=== PATIENT | male | born 1970 | race Caucasian/White ===

== ENCOUNTER 2017-08-13 13:21 | Inpatient (IN) | payer OTHER ==
[2017-08-13 13:21] VITALS: BMI 30.8
--- NOTE | 2017-08-13 15:39 | C.PDOC ---
History Of Present Illness 47yo male with history of hypertension, diabetes, presents to ED with complaints of right sided abdominal pain and flank pain for the past 3 days. He reports associated nausea but denies any vomiting, diarrhea, fever, chills. Patient denies any chest pain, shortness of breath and offers no other medical complaints. Time Seen by Provider: 08/13/17 15:36 Chief Complaint (Nursing): Abdominal Pain History Per: Patient History/Exam Limitations: no limitations Onset/Duration Of Symptoms: Days (3) Current Symptoms Are (Timing): Still Present Location Of Pain/Discomfort: RUQ, RLQ, Other (left flank) Associated Symptoms: Nausea. denies: Fever, Chills, Vomiting, Diarrhea, Chest Pain Past Medical History Reviewed: Historical Data, Nursing Documentation, Vital Signs Vital Signs: Last Vital Signs Temp 98.3 F 08/13/17 20:48 Pulse 61 08/13/17 20:48 Resp 20 08/13/17 20:48 BP 168/88 H 08/13/17 20:48 Pulse Ox 100 08/13/17 21:36 - Medical History PMH: Diabetes, HTN Surgical History: No Surg Hx Family History: States: No Known Family Hx - Social History Hx Tobacco Use: No Hx Alcohol Use: No Hx Substance Use: No - Immunization History Hx Tetanus Toxoid Vaccination: No Hx Influenza Vaccination: No Hx Pneumococcal Vaccination: No Review Of Systems Except As Marked, All Systems Reviewed And Found Negative. Constitutional: Negative for: Fever, Chills Cardiovascular: Negative for: Chest Pain Respiratory: Negative for: Shortness of Breath Gastrointestinal: Positive for: Nausea, Abdominal Pain. Negative for: Vomiting , Diarrhea Physical Exam - Physical Exam Appears: Non-toxic, No Acute Distress Skin: Normal Color Eye(s): bilateral: Normal Inspection Neck: Normal ROM, Supple Chest: Symmetrical Cardiovascular: Rhythm Regular Respiratory: Normal Breath Sounds Gastrointestinal/Abdominal: Soft, Tenderness (mild right flank tenderness) Neurological/Psych: Oriented x3 ED Course And Treatment - Laboratory Results Result Diagrams: 08/13/17 16:02 08/13/17 16:02 O2 Sat by Pulse Oximetry: 100 (RA) Pulse Ox Interpretation: Normal Medical Decision Making Medical Decision Making: Impression: Abdominal Pain- bedside us shows no e/o of gallballder pathology limited view of gallblader neck - labs imaging pending Plan: -- Labs -- Toradol 30mg IVP -- CXR ct shows diverticulitis at hepatic flexure, antibiotics doesd. pt needs multiple rounds of iv analgestis. us ordered to eval gallbladder as small stone seen on ct. dr vivian moe accepts for admission. Disposition - Disposition Disposition: HOSPITALIZED Disposition Time: 09:00 Condition: STABLE - Clinical Impression Clinical Impression: Diverticulitis, Leukocytosis, Gallstone - Scribe Statement The provider has reviewed the documentation as recorded by the Scribe (Shona Lua) Provider Attestation: All medical record entries made by the Scribe were at my direction and personally dictated by me. I have reviewed the chart and agree that the record accurately reflects my personal performance of the history, physical exam, medical decision making, and the department course for this patient. I have also personally directed, reviewed, and agree with the discharge instructions and disposition. Decision To Admit - Pt Status Changed To: Hospital Disposition Of: Inpatient - Admit Certification Admit to Inpatient:: After my assessment, the patient will require hospitalization for at least two midnights. This is because of the severity of symptoms shown, intensity of services needed, and/or the medical risk in this patient being treated as an outpatient. - InPatient: Physician Admission Certification:: needs iv antibiocs and pain control - . Bed Request Type: Regular Admitting Physician: Lennox Moe Patient Diagnosis: Diverticulitis, Leukocytosis, Gallstone
[2017-08-13 16:06] LABS: BASO # 0.1 K/uL (0.0-0.2); BASO % 0.5 % (0.0-2.0); EOS # 0.1 K/uL (0.0-0.7); EOS % 1.1 % (0.0-4.0); HEMOGLOBIN 14.8 g/dL (12.0-18.0); LYMPH # 2.5 K/uL (1.0-4.3); LYMPH % 19.8 % (20.0-40.0); MEAN CORPUSCULAR HEMOGLOBIN 30.6 pg (27.0-31.0); MEAN CORPUSCULAR HGB CONC 33.4 g/dL (33.0-37.0); MEAN PLATELET VOLUME 8.8 fL (7.2-11.7); MONO # 0.8 K/uL (0.0-0.8); MONO % 6.5 % (0.0-10.0); NEUT # 9.1 K/uL (1.8-7.0); NEUT % 72.1 % (50.0-75.0); RBC 4.82 Mil/uL (4.40-5.90); RED CELL DISTRIBUTION WIDTH 13.4 % (11.5-14.5); WHITE BLOOD COUNT 12.7 K/uL (4.8-10.8)
[2017-08-13 16:09] LABS: MEAN CELL VOLUME 91.6 fL (80.0-94.0)
[2017-08-13 16:12] LABS: URINE BILIRUBIN NEGATIVE (NEGATIVE); URINE BLOOD NEGATIVE (NEGATIVE); URINE CLARITY Clear (Clear); URINE COLOR Straw (YELLOW); URINE GLUCOSE (UA) NORMAL (Normal); URINE LEUKOCYTE ESTERASE NEG Leu/uL (Negative); URINE NITRATE NEGATIVE (NEGATIVE); URINE PROTEIN NEGATIVE (NEGATIVE); URINE UROBILINOGEN NORMAL mg/dL (0.2-1.0)
[2017-08-13 16:15] LABS: INR 1.1; PROTHROMBIN TIME 11.9 SECONDS (9.7-12.2)
[2017-08-13 16:27] LABS: ALB/GLOB RATIO 1.4 (1.0-2.1); ALBUMIN 4.1 g/dL (3.5-5.0); ALT/SGPT 31 U/L (21-72); AST/SGOT 25 U/L (17-59); BILIRUBIN,DIRECT 0.3 mg/dL (0.0-0.4); BLOOD UREA NITROGEN 10 mg/dL (9-20); CALCIUM 8.7 mg/dl (8.6-10.4); GFR AFRICAN-AMERICAN > 60; GFR NON-AFRICAN AMERICAN > 60; LIPASE 68 U/L (23-300)
--- NOTE | 2017-08-13 18:37 | CT ---
EXAM: CT Abdomen and Pelvis Without Intravenous Contrast EXAM DATE/TIME: Exam ordered 08/13/2017 3:53 PM CLINICAL HISTORY: 47 years old, male; Pain; Abdominal pain; Flank; Right lower quadrant (rlq); Additional info: Right flank pain TECHNIQUE: Axial computed tomography images of the abdomen and pelvis without intravenous contrast. All CT scans at this facility use one or more dose reduction techniques, viz.: automated exposure control; ma/kV adjustment per patient size (including targeted exams where dose is matched to indication; i.e. head); or iterative reconstruction technique. Coronal and sagittal reformatted images were created and reviewed. COMPARISON: No relevant prior studies available. FINDINGS: Lower thorax: No acute findings. ABDOMEN: Liver: The liver is low in density. A single hepatic parenchymal calcification is noted in the lateral segment left lobe. Gallbladder and bile ducts: Tiny gallstones are suggested in the fundus of the gallbladder.. No calcified stones. No ductal dilation. Pancreas: Unremarkable. No ductal dilation. Spleen: Unremarkable. No splenomegaly. Adrenals: Unremarkable. No mass. Kidneys and ureters: Unremarkable. No obstructing stones. No hydronephrosis. Stomach and bowel: There are scattered colonic diverticula. There is mild stranding of the pericolonic fat at the level of the hepatic flexure. Multiple colonic diverticula are noted. No obstruction. No mucosal thickening. Appendix: No findings to suggest acute appendicitis. PELVIS: Bladder: Unremarkable. No stones. Reproductive: The prostate measures 3.5 x 5 by 3.4 cm. ABDOMEN and PELVIS: Intraperitoneal space: Unremarkable. No free air. No significant fluid collection. Bones/joints: No acute fracture. No dislocation. Soft tissues: Unremarkable. Vasculature: Unremarkable. No abdominal aortic aneurysm. Lymph nodes: Unremarkable. No enlarged lymph nodes. IMPRESSION: Mild diverticulitis suggested the level of hepatic flexure. No abscess. No perforation. 2. Hepatic steatosis. 3. Single hepatic calcification. This could represent previous granulomatous disease. 4. Tiny gallstone suggested in the gallbladder fundus. If intervention is anticipated, this finding should be confirmed with ultrasound Images were attached to this report and are available at [email or web address]
[2017-08-13] MEDS ORDERED: Piperacillin/Tazobact 3.375 GM in Sodium Chloride 100 ML IVPB STA (18:42)
[2017-08-13] MEDS ORDERED: Morphine 4 MG/ML VIAL ONE (19:09)
--- NOTE | 2017-08-13 20:46 | US ---
EXAM: US Abdomen Limited, Right Upper Quadrant EXAM DATE/TIME: Exam ordered 08/13/2017 7:07 PM CLINICAL HISTORY: 47 years old, male; Pain; Abdominal pain; Generalized; Additional info: Ruq pain TECHNIQUE: Real-time ultrasound of the right upper quadrant with image documentation. COMPARISON: CT - ABD PELVIS W/O PO OR IV CONT 2017-08-13 16:28 FINDINGS: Liver: The inferior vena cava is not well seen due to patient body habitus. The liver echotexture is mildly increased and coarsened. The liver measures at least 18.2 cm in craniocaudal span. There is normal blood flow direction in the main portal vein. Normal phasic flow is noted within a hepatic vein. Gallbladder: Unremarkable. No gallstones. Common bile duct: The common bile duct measures are 0.35 cm. No stones. No dilation. Pancreas: The pancreas is not seen due to bowel gas. Right kidney: The right kidney measures 12.3 x 5.3 x 4.9 cm. A 9 mm hypoechoic lesion is noted in the lower pole of the right kidney. Internal echoes are noted. Through-transmission of sound cannot be verified on this examination. IMPRESSION: 1. No gallstones seen. 2. Hepatic steatosis. 3. 9 mm hypoechoic lesion in the lower pole right kidney. This does not meet the ultrasound criteria for simple cyst perhaps due its small size. A followup ultrasound in 12 months might be considered
--- NOTE | 2017-08-13 20:47 | CP.PCM.HP ---
Past Patient History - Past Social History Smoking Status: Never Smoked - CARDIAC Hx Hypertension: Yes - ENDOCRINE/METABOLIC Hx Endocrine Disorders: Yes Hx Diabetes Mellitus Type 2: Yes - PSYCHIATRIC Hx Substance Use: No - SURGICAL HISTORY Hx Surgeries: No Meds Allergies/Adverse Reactions: Allergies Allergy/AdvReac Type Severity Reaction Status Date / Time No Known Allergies Allergy Verified 08/13/17 13:54 Results - Vital Signs Recent Vital Signs: Last Vital Signs Temp 98.8 F 08/13/17 19:15 Pulse 56 L 08/13/17 19:15 Resp 18 08/13/17 19:15 BP 163/81 H 08/13/17 19:15 Pulse Ox 100 08/13/17 19:15 - Labs Result Diagrams: 08/13/17 16:02 08/13/17 16:02 Labs: Laboratory Results - last 24 hr 08/13/17 08/13/17 08/13/17 16:02 16:02 16:02 WBC 12.7 H RBC 4.82 Hgb 14.8 Hct 44.1 MCV 91.6 D MCH 30.6 MCHC 33.4 RDW 13.4 Plt Count 309 MPV 8.8 Neut % (Auto) 72.1 Lymph % (Auto) 19.8 L [place] % (Auto) 6.5 Eos % (Auto) 1.1 Baso % (Auto) 0.5 Neut # (Auto) 9.1 H Lymph # (Auto) 2.5 [place] # (Auto) 0.8 Eos # (Auto) 0.1 Baso # (Auto) 0.1 PT 11.9 INR 1.1 APTT 29 Sodium Potassium Chloride Carbon Dioxide Anion Gap BUN Creatinine Est GFR ( Amer) Est GFR (Non-Af Amer) Random Glucose Calcium Total Bilirubin Direct Bilirubin AST ALT Alkaline Phosphatase Total Protein Albumin Globulin Albumin/Globulin Ratio Lipase Urine Color Straw Urine Clarity Clear Urine pH 7.0 Ur Specific [place] 1.012 Urine Protein Negative Urine Glucose (UA) Normal Urine Ketones Negative Urine Blood Negative Urine Nitrate Negative Urine Bilirubin Negative Urine Urobilinogen Normal Ur Leukocyte Esterase Neg Urine WBC (Auto) < 1 Urine RBC (Auto) < 1 08/13/17 16:02 WBC RBC Hgb Hct MCV MCH MCHC RDW Plt Count MPV Neut % (Auto) Lymph % (Auto) [place] % (Auto) Eos % (Auto) Baso % (Auto) Neut # (Auto) Lymph # (Auto) [place] # (Auto) Eos # (Auto) Baso # (Auto) PT INR APTT Sodium 133 Potassium 4.0 Chloride 97 L Carbon Dioxide 30 Anion Gap 9 L BUN 10 Creatinine 0.8 Est GFR ( Amer) > 60 Est GFR (Non-Af Amer) > 60 Random Glucose 150 H Calcium 8.7 Total Bilirubin 0.4 Direct Bilirubin 0.3 AST 25 ALT 31 Alkaline Phosphatase 78 Total Protein 7.0 Albumin 4.1 Globulin 2.9 Albumin/Globulin Ratio 1.4 Lipase 68 Urine Color Urine Clarity Urine pH Ur Specific [place] Urine Protein Urine Glucose (UA) Urine Ketones Urine Blood Urine Nitrate Urine Bilirubin Urine Urobilinogen Ur Leukocyte Esterase Urine WBC (Auto) Urine RBC (Auto) Assessment & Plan - Assessment and Plan (Free Text) Plan: protonix lvoenox if no bleeding gi consult zosyn flagyl claudia same s/p ct scan and usg surg prn
[2017-08-13] MEDS ORDERED: Piperacillin/Tazobact 3.375 GM in Sodium Chloride 100 ML IVPB SCH (21:00)
[2017-08-13] MEDS: metroNIDAZOLE IV 500 mg/100 ml 500 MG/100 ML BAG IVPB SCH (22:00)
[2017-08-13] MEDS: Morphine 4 MG/ML VIAL IV PRN (22:42)
[2017-08-13] MEDS: (Novolog) Insulin Aspart, Recombinant 100 u/ml 10 ml vial SC SCH (22:45)
[2017-08-14] MEDS: Piperacillin/Tazobact 3.375 GM in Sodium Chloride 100 ML IVPB SCH ×2 (01:22→12:52)
[2017-08-14] MEDS: metroNIDAZOLE IV 500 mg/100 ml 500 MG/100 ML BAG IVPB SCH ×3 (06:35→21:25)
--- NOTE | 2017-08-14 06:49 | CP.PCM.CON ---
<Gustavo Ojeda - Last Filed: 08/14/17 09:17> History of Present Illness - History of Present Illness History of Present Illness: GI Consult Note: 47 M with pmh of HTN and DM presents to the ED with R abdominal and flank pain. Pt states that his pain started 3 days ago and has gotten progressively worse. He states that his pain is located mainly in the R side of his abdomen and R flank, non radiating. The pain is 10/10 in severity. He states that he took some pain medication at home which he doesn't recall the name. The pain is associated with nausea and 1 episode of non bloody non bilious vomiting yesterday. He also states that he had 3 episode of loose BMs yesterday but denied any diarrhea. Denies having this type of pain before. Denies any history of constipation. He denies any fever chills, sob, chest pain, urinary changes. In the ED patient had wbc of 12.7, CT abdomen showed mild diverticulitis at the hepatic flexure, hepatic steatosis, hepatic calcifications suggesting prior granulomatous dx and small gallstone in gallbladder fundus. Abd US showed no gallstone in the hepatic flexure. GI was consulted for diverticulitis. PMH: DM and HTN PSH: Denies ALL: NKA Med: refer to [facility] SH: alcohol use of 24 pack of beer on the weekends, denies any smoking or recreational drugs FH: denies Endo Hx: denies Review of Systems - Review of Systems All systems: reviewed and no additional remarkable complaints except Past Patient History - Past Social History Smoking Status: Never Smoked - CARDIAC Hx Hypertension: Yes - ENDOCRINE/METABOLIC Hx Endocrine Disorders: Yes Hx Diabetes Mellitus Type 2: Yes - MUSCULOSKELETAL/RHEUMATOLOGICAL Hx Falls: No - PSYCHIATRIC Hx Substance Use: No - SURGICAL HISTORY Hx Surgeries: No - ANESTHESIA Hx Anesthesia: Yes Hx Anesthesia Reactions: No Hx Malignant Hyperthermia: No Has any member of the family had a problem w/ anesthesia?: No Meds Allergies/Adverse Reactions: Allergies Allergy/AdvReac Type Severity Reaction Status Date / Time No Known Allergies Allergy Verified 08/13/17 13:54 - Medications Medications: Current Medications Enoxaparin Sodium (Lovenox) 30 mg SC DAILY [facility] Glipizide (Glucotrol) 5 mg PO BIDAC [facility] Metronidazole (Flagyl) 500 mg in 100 mls @ 100 mls/hr IVPB Q8 [facility] Last Admin: 08/14/17 06:35 Dose: 100 mls/hr Piperacillin Sod/Tazobactam (Sod 3.375 gm/ Sodium Chloride) 100 mls @ 200 mls/ hr IVPB Q6H [facility] Last Admin: 08/14/17 01:22 Dose: 200 mls/hr Insulin Aspart (Novolog) 0 unit SC ACHS [facility] PRN Reason: Protocol Last Admin: 08/13/17 22:45 Dose: Not Given Lisinopril (Zestril) 10 mg PO DAILY [facility] Last Admin: 08/13/17 22:36 Dose: 10 mg Metformin HCl (Glucophage) 1,000 mg PO BID [facility] Morphine Sulfate (Morphine) 2 mg IV Q8 PRN PRN Reason: Pain, moderate (4-7) Last Admin: 08/13/17 22:42 Dose: 2 mg Pantoprazole Sodium (Protonix Ec Tab) 40 mg PO DAILY [facility] Pneumococcal Polyvalent Vaccine (Pneumovax 23 Vaccine) 0.5 ml IM .ONCE ONE Stop: 08/15/17 10:01 Physical Exam - Constitutional Appears: No Acute Distress - Head Exam Head Exam: ATRAUMATIC, NORMOCEPHALIC - Eye Exam Eye Exam: EOMI, PERRL Pupil Exam: NORMAL ACCOMODATION - ENT Exam ENT Exam: Mucous Membranes Moist - Respiratory Exam Respiratory Exam: Clear to Auscultation Bilateral. absent: Wheezes - Cardiovascular Exam Cardiovascular Exam: REGULAR RHYTHM, RRR, +S1, +S2 - GI/Abdominal Exam GI & Abdominal Exam: Normal Bowel Sounds, Soft, Tenderness. absent: Distended, Organomegaly Additional comments: mild tenderness in RUQ - Extremities Exam Extremities exam: Negative for: calf tenderness, pedal edema - Neurological Exam Neurological exam: Alert, Oriented x3 - Psychiatric Exam Psychiatric exam: Normal Mood - Skin Skin Exam: Dry, Intact, Warm Results - Vital Signs Recent Vital Signs: Last Vital Signs Temp 98.1 F 08/13/17 23:33 Pulse 64 08/13/17 23:33 Resp 18 08/13/17 23:33 BP 148/69 08/13/17 23:33 Pulse Ox 98 08/13/17 23:33 - Labs Result Diagrams: 08/13/17 16:02 08/13/17 16:02 Labs: Laboratory Results - last 24 hr 08/13/17 08/13/1718 16:02 16:02 16:02 WBC 12.7 H RBC 4.82 Hgb 14.8 Hct 44.1 MCV 91.6 D MCH 30.6 MCHC 33.4 RDW 13.4 Plt Count 309 MPV 8.8 Neut % (Auto) 72.1 Lymph % (Auto) 19.8 L [place] % (Auto) 6.5 Eos % (Auto) 1.1 Baso % (Auto) 0.5 Neut # (Auto) 9.1 H Lymph # (Auto) 2.5 [place] # (Auto) 0.8 Eos # (Auto) 0.1 Baso # (Auto) 0.1 PT 11.9 INR 1.1 APTT 29 Sodium Potassium Chloride Carbon Dioxide Anion Gap BUN Creatinine Est GFR ( Amer) Est GFR (Non-Af Amer) POC Glucose (mg/dL) Random Glucose Calcium Total Bilirubin Direct Bilirubin AST ALT Alkaline Phosphatase Total Protein Albumin Globulin Albumin/Globulin Ratio Lipase Urine Color Straw Urine Clarity Clear Urine pH 7.0 Ur Specific [place] 1.012 Urine Protein Negative Urine Glucose (UA) Normal Urine Ketones Negative Urine Blood Negative Urine Nitrate Negative Urine Bilirubin Negative Urine Urobilinogen Normal Ur Leukocyte Esterase Neg Urine WBC (Auto) < 1 Urine RBC (Auto) < 1 08/13/17 08/13/17 16:02 22:04 WBC RBC Hgb Hct MCV MCH MCHC RDW Plt Count MPV Neut % (Auto) Lymph % (Auto) [place] % (Auto) Eos % (Auto) Baso % (Auto) Neut # (Auto) Lymph # (Auto) [place] # (Auto) Eos # (Auto) Baso # (Auto) PT INR APTT Sodium 133 Potassium 4.0 Chloride 97 L Carbon Dioxide 30 Anion Gap 9 L BUN 10 Creatinine 0.8 Est GFR ( Amer) > 60 Est GFR (Non-Af Amer) > 60 POC Glucose (mg/dL) 174 H Random Glucose 150 H Calcium 8.7 Total Bilirubin 0.4 Direct Bilirubin 0.3 AST 25 ALT 31 Alkaline Phosphatase 78 Total Protein 7.0 Albumin 4.1 Globulin 2.9 Albumin/Globulin Ratio 1.4 Lipase 68 Urine Color Urine Clarity Urine pH Ur Specific [place] Urine Protein Urine Glucose (UA) Urine Ketones Urine Blood Urine Nitrate Urine Bilirubin Urine Urobilinogen Ur Leukocyte Esterase Urine WBC (Auto) Urine RBC (Auto) Assessment & Plan - Assessment and Plan (Free Text) Assessment: 47 M with pmh of HTN and DM presents to the ED with R abdominal and flank pain likely 2/2 possible mild diverticulitis and/or constipation. 1. Possible mild diverticulitis 2. Constipation 2. DM 3. HTN - HHD as tolerated - Continue Antibiotics with Zosyn and Flagyl - Pain control - Antiemetics PRN - Started on Miralax for constipation - Pt would benefit from outpatient elective colonoscopy - Cont to monitor patient clinical course Case and plan was reviewed and discussed in detail with Dr Mathews. <Hilario Mathews - Last Filed: 08/14/17 20:27> Meds - Medications Medications: Current Medications Enoxaparin Sodium (Lovenox) 30 mg SC DAILY [facility] Last Admin: 08/14/17 11:49 Dose: 30 mg Glipizide (Glucotrol) 5 mg PO BIDAC [facility] Last Admin: 08/14/17 17:10 Dose: 5 mg Metronidazole (Flagyl) 500 mg in 100 mls @ 100 mls/hr IVPB Q8 [facility] Last Admin: 08/14/17 13:34 Dose: 100 mls/hr Piperacillin Sod/Tazobactam Sod (Zosyn 3.375 Gm Iv Premix) 3.375 gm in 50 mls @ 200 mls/hr IVPB Q6H [facility] Last Admin: 08/14/17 18:37 Dose: 200 mls/hr Insulin Aspart (Novolog) 0 unit SC ACHS [facility] PRN Reason: Protocol Last Admin: 08/14/17 17:07 Dose: Not Given Ketorolac Tromethamine (Toradol) 30 mg IVP Q6 PRN PRN Reason: Pain, Mild (1-3) Lisinopril (Zestril) 10 mg PO DAILY [facility] Last Admin: 08/14/17 12:44 Dose: Not Given Metformin HCl (Glucophage) 1,000 mg PO BID [facility] Last Admin: 08/14/17 17:10 Dose: 1,000 mg Morphine Sulfate (Morphine) 2 mg IV Q8 PRN PRN Reason: Pain, moderate (4-7) Last Admin: 08/14/17 17:06 Dose: 2 mg Pantoprazole Sodium (Protonix Ec Tab) 40 mg PO DAILY [facility] Last Admin: 08/14/17 11:51 Dose: 40 mg Pneumococcal Polyvalent Vaccine (Pneumovax 23 Vaccine) 0.5 ml IM .ONCE ONE Stop: 08/15/17 10:01 Polyethylene Glycol (Miralax) 17 gm PO DAILY [facility] Last Admin: 08/14/17 11:49 Dose: 17 gm Results - Vital Signs Recent Vital Signs: Last Vital Signs Temp 98.2 F 08/14/17 16:00 Pulse 60 08/14/17 16:00 Resp 20 08/14/17 16:00 BP 131/73 08/14/17 16:00 Pulse Ox 100 08/14/17 16:00 - Labs Result Diagrams: 08/14/17 11:01 08/14/17 11:01 Labs: Laboratory Results - last 24 hr 08/13/17 08/14/17 08/14/17 22:04 07:10 11:01 WBC 11.6 H RBC 4.62 Hgb 14.6 Hct 41.9 MCV 90.7 MCH 31.6 H MCHC 34.8 RDW 13.1 Plt Count 293 MPV 9.3 Neut % (Auto) 77.1 H Lymph % (Auto) 15.1 L [place] % (Auto) 6.3 Eos % (Auto) 1.2 Baso % (Auto) 0.3 Neut # (Auto) 9.0 H Lymph # (Auto) 1.8 [place] # (Auto) 0.7 Eos # (Auto) 0.1 Baso # (Auto) 0.0 Sodium Potassium Chloride Carbon Dioxide Anion Gap BUN Creatinine Est GFR ( Amer) Est GFR (Non-Af Amer) POC Glucose (mg/dL) 174 H 158 H Random Glucose Calcium Total Bilirubin AST ALT Alkaline Phosphatase Total Protein Albumin Globulin Albumin/Globulin Ratio 08/14/17 08/14/17 08/14/17 11:01 11:25 16:02 WBC RBC Hgb Hct MCV MCH MCHC RDW Plt Count MPV Neut % (Auto) Lymph % (Auto) [place] % (Auto) Eos % (Auto) Baso % (Auto) Neut # (Auto) Lymph # (Auto) [place] # (Auto) Eos # (Auto) Baso # (Auto) Sodium 136 Potassium 4.0 Chloride 98 Carbon Dioxide 31 H Anion Gap 11 BUN 10 Creatinine 0.9 Est GFR ( Amer) > 60 Est GFR (Non-Af Amer) > 60 POC Glucose (mg/dL) 146 H 108 Random Glucose 166 H Calcium 8.9 Total Bilirubin 0.6 AST 23 ALT 30 Alkaline Phosphatase 69 Total Protein 6.4 Albumin 3.6 Globulin 2.8 Albumin/Globulin Ratio 1.3 Attending/Attestation - Attestation I have personally seen and examined this patient.: Yes I have fully participated in the care of the patient.: Yes I have reviewed all pertinent clinical information: Yes Notes (Text): 08/14/17 20:26 47 year old male with h/o HTN, DM admitted with mild diverticulitis. 1. Acute diverticulitis 2. Constipation Plan: - mild stranding at hepatic flexure per CT report - recommend course of antibiotics - outpatient colonoscopy in 6 weeks - miralax bowel regimen - advance diet as tolerated - supportive measures/pain control
[2017-08-14 08:02] VITALS: RESP 20
[2017-08-14] MEDS: Morphine 4 MG/ML VIAL IV PRN (08:20)
[2017-08-14] MEDS: (Novolog) Insulin Aspart, Recombinant 100 u/ml 10 ml vial SC SCH ×4 (08:29→21:33)
--- NOTE | 2017-08-14 08:37 | RAD ---
HISTORY: abd pain COMPARISON: No prior. TECHNIQUE: Chest PA and lateral FINDINGS: LUNGS: No active pulmonary disease. PLEURA: No significant pleural effusion identified. No pneumothorax apparent. CARDIOVASCULAR: Normal. OSSEOUS STRUCTURES: No significant abnormalities. VISUALIZED UPPER ABDOMEN: Normal. OTHER FINDINGS: None. IMPRESSION: No active disease.
[2017-08-14] MEDS ORDERED: POLYETHYLENE GLYCOL 3350 17 GM/Dose PACKET PO SCH (10:00)
[2017-08-14 11:22] LABS: BASO % 0.3 % (0.0-2.0); EOS # 0.1 K/uL (0.0-0.7); EOS % 1.2 % (0.0-4.0); HEMOGLOBIN 14.6 g/dL (12.0-18.0); LYMPH # 1.8 K/uL (1.0-4.3); LYMPH % 15.1 % (20.0-40.0); MEAN CELL VOLUME 90.7 fL (80.0-94.0); MEAN CORPUSCULAR HEMOGLOBIN 31.6 pg (27.0-31.0); MEAN CORPUSCULAR HGB CONC 34.8 g/dL (33.0-37.0); MEAN PLATELET VOLUME 9.3 fL (7.2-11.7); MONO # 0.7 K/uL (0.0-0.8); MONO % 6.3 % (0.0-10.0); NEUT % 77.1 % (50.0-75.0); NRBC % 0.1 % (0.0-2.0); RBC 4.62 Mil/uL (4.40-5.90); RED CELL DISTRIBUTION WIDTH 13.1 % (11.5-14.5); WHITE BLOOD COUNT 11.6 K/uL (4.8-10.8)
[2017-08-14 11:31] LABS: ALB/GLOB RATIO 1.3 (1.0-2.1); ALBUMIN 3.6 g/dL (3.5-5.0); ALT/SGPT 30 U/L (21-72); AST/SGOT 23 U/L (17-59); BLOOD UREA NITROGEN 10 mg/dL (9-20); CALCIUM 8.9 mg/dl (8.6-10.4); GFR AFRICAN-AMERICAN > 60; GFR NON-AFRICAN AMERICAN > 60
[2017-08-14] MEDS: Enoxaparin 30 mg Syringe SC SCH (11:49)
[2017-08-14] MEDS: Pantoprazole 40 mg EC Tab PO SCH (11:51)
--- NOTE | 2017-08-14 15:30 | CP.PCM.PN ---
Subjective - Date & Time of Evaluation Date of Evaluation: 08/14/17 Time of Evaluation: 15:18 - Subjective Subjective: PGY [address] Pena Pt seen and examined at bedside. Continues to c/o right sided abd pain. Denies having any N/V, CP/SOB, F/C. Patient is tolerating soft food. States that last BM was 2 days ago. Objective - Vital Signs/Intake and Output Vital Signs (last 24 hours): Temp Pulse Resp BP Pulse Ox 97.7 F 65 20 159/89 H 99 08/14/17 07:01 08/14/17 07:01 08/14/17 07:01 08/14/17 07:01 08/14/17 07:01 Intake and Output: 08/14/17 08/14/17 06:59 18:59 Intake Total 200 Balance 200 - Medications Medications: Current Medications Enoxaparin Sodium (Lovenox) 30 mg SC DAILY [facility] Last Admin: 08/14/17 11:49 Dose: 30 mg Glipizide (Glucotrol) 5 mg PO BIDAC [facility] Last Admin: 08/14/17 08:33 Dose: 5 mg Metronidazole (Flagyl) 500 mg in 100 mls @ 100 mls/hr IVPB Q8 [facility] Last Admin: 08/14/17 13:34 Dose: 100 mls/hr Piperacillin Sod/Tazobactam Sod (Zosyn 3.375 Gm Iv Premix) 3.375 gm in 50 mls @ 200 mls/hr IVPB Q6H [facility] Insulin Aspart (Novolog) 0 unit SC ACHS [facility] PRN Reason: Protocol Last Admin: 08/14/17 11:52 Dose: Not Given Lisinopril (Zestril) 10 mg PO DAILY [facility] Last Admin: 08/14/17 12:44 Dose: Not Given Metformin HCl (Glucophage) 1,000 mg PO BID [facility] Last Admin: 08/14/17 11:48 Dose: 1,000 mg Morphine Sulfate (Morphine) 2 mg IV Q8 PRN PRN Reason: Pain, moderate (4-7) Last Admin: 08/14/17 08:20 Dose: 2 mg Pantoprazole Sodium (Protonix Ec Tab) 40 mg PO DAILY [facility] Last Admin: 08/14/17 11:51 Dose: 40 mg Pneumococcal Polyvalent Vaccine (Pneumovax 23 Vaccine) 0.5 ml IM .ONCE ONE Stop: 08/15/17 10:01 Polyethylene Glycol (Miralax) 17 gm PO DAILY [facility] Last Admin: 08/14/17 11:49 Dose: 17 gm - Labs Labs: 08/14/17 11:01 08/14/17 11:01 PT 11.9 SECONDS (9.7-12.2) 08/13/17 16:02 INR 1.1 08/13/17 16:02 APTT 29 SECONDS (21-34) 08/13/17 16:02 - Constitutional Appears: Non-toxic, No Acute Distress - Head Exam Head Exam: ATRAUMATIC - ENT Exam ENT Exam: Mucous Membranes Moist - Respiratory Exam Respiratory Exam: Clear to Ausculation Bilateral. absent: Accessory Muscle Use , Rhonchi, Wheezes, Respiratory Distress - Cardiovascular Exam Cardiovascular Exam: REGULAR RHYTHM, +S1, +S2. absent: Gallop, Rubs, Murmur - GI/Abdominal Exam GI & Abdominal Exam: Soft, Tenderness (r quadrant ), Normal Bowel Sounds. absent: Distended, Firm, Guarding, Rigid, Organomegaly - Extremities Exam Extremities Exam: absent: Pedal Edema, Tenderness - Neurological Exam Neurological Exam: Alert, Awake, Oriented x3 - Psychiatric Exam Psychiatric exam: Normal Affect, Normal Mood - Skin Skin Exam: Dry, Intact, Normal Color, Warm Assessment and Plan - Assessment and Plan (Free Text) Assessment: 47 year old male with past medical history of HTN, DM is admitted for mild diverticulitis at the hepatic flexure seen on CT scan Diverticulitis Pt was afebrile on presentation but had elevated WBC count Pt started on flagyl and zosyn GI consulted. recommend continuing Abx and advancing diet as tolerated. rec o/ p colonoscopy HTN Continue to monitor VS Continue zestril DM Continue metformin and glipizide Accuchecks ACHS Prophylaxis Lovenox protonix Case discussed with Dr. Pena. All recs and orders per Dr. Pena.
[2017-08-14] MEDS ORDERED: Morphine 4 MG/ML VIAL IV PRN ×2 (16:21→16:22)
--- NOTE | 2017-08-14 18:17 | CP.PCM.PN ---
Subjective - Date & Time of Evaluation Date of Evaluation: 08/14/17 Time of Evaluation: 08:40 - Subjective Subjective: clinically same Objective - Vital Signs/Intake and Output Vital Signs (last 24 hours): Temp Pulse Resp BP Pulse Ox 98.2 F 60 20 131/73 100 08/14/17 16:00 08/14/17 16:00 08/14/17 16:00 08/14/17 16:00 08/14/17 16:00 Intake and Output: 08/14/17 08/14/17 06:59 18:59 Intake Total 200 Balance 200 - Medications Medications: Current Medications Enoxaparin Sodium (Lovenox) 30 mg SC DAILY [facility] Last Admin: 08/14/17 11:49 Dose: 30 mg Glipizide (Glucotrol) 5 mg PO BIDAC [facility] Last Admin: 08/14/17 17:10 Dose: 5 mg Metronidazole (Flagyl) 500 mg in 100 mls @ 100 mls/hr IVPB Q8 [facility] Last Admin: 08/14/17 13:34 Dose: 100 mls/hr Piperacillin Sod/Tazobactam Sod (Zosyn 3.375 Gm Iv Premix) 3.375 gm in 50 mls @ 200 mls/hr IVPB Q6H [facility] Insulin Aspart (Novolog) 0 unit SC ACHS [facility] PRN Reason: Protocol Last Admin: 08/14/17 17:07 Dose: Not Given Ketorolac Tromethamine (Toradol) 30 mg IVP Q6 PRN PRN Reason: Pain, Mild (1-3) Lisinopril (Zestril) 10 mg PO DAILY [facility] Last Admin: 08/14/17 12:44 Dose: Not Given Metformin HCl (Glucophage) 1,000 mg PO BID [facility] Last Admin: 08/14/17 17:10 Dose: 1,000 mg Morphine Sulfate (Morphine) 2 mg IV Q8 PRN PRN Reason: Pain, moderate (4-7) Last Admin: 08/14/17 17:06 Dose: 2 mg Pantoprazole Sodium (Protonix Ec Tab) 40 mg PO DAILY [facility] Last Admin: 08/14/17 11:51 Dose: 40 mg Pneumococcal Polyvalent Vaccine (Pneumovax 23 Vaccine) 0.5 ml IM .ONCE ONE Stop: 08/15/17 10:01 Polyethylene Glycol (Miralax) 17 gm PO DAILY [facility] Last Admin: 08/14/17 11:49 Dose: 17 gm - Labs Labs: 08/14/17 11:01 08/14/17 11:01 PT 11.9 SECONDS (9.7-12.2) 08/13/17 16:02 INR 1.1 08/13/17 16:02 APTT 29 SECONDS (21-34) 08/13/17 16:02 - Constitutional Appears: Well - Head Exam Head Exam: ATRAUMATIC, NORMAL INSPECTION, NORMOCEPHALIC - Eye Exam Eye Exam: EOMI, Normal appearance, PERRL Pupil Exam: NORMAL ACCOMODATION, PERRL - ENT Exam ENT Exam: Mucous Membranes Moist, Normal Exam - Neck Exam Neck Exam: Full ROM, Normal Inspection. absent: Lymphadenopathy - Respiratory Exam Respiratory Exam: Decreased Breath Sounds - Cardiovascular Exam Cardiovascular Exam: REGULAR RHYTHM, +S1, +S2 - GI/Abdominal Exam GI & Abdominal Exam: Soft, Diminished Bowel Sounds - Rectal Exam Rectal Exam: Deferred
[2017-08-14] MEDS: Piperacill/Tazo 3.375gm in Dex 3.375 GM/50 ML BAG IVPB SCH (18:37)
[2017-08-15] MEDS: Piperacill/Tazo 3.375gm in Dex 3.375 GM/50 ML BAG IVPB SCH ×3 (00:14→12:56)
[2017-08-15] MEDS: metroNIDAZOLE IV 500 mg/100 ml 500 MG/100 ML BAG IVPB SCH ×2 (05:52→13:58)
--- NOTE | 2017-08-15 06:49 | CP.PCM.PN ---
<Gustavo Ojeda - Last Filed: 08/15/17 08:50> Subjective - Date & Time of Evaluation Date of Evaluation: 08/15/17 Time of Evaluation: 05:50 - Subjective Subjective: GI Progress note: Pt seen and examined at bedside. No acute events overnight. Pt still complaining of R sided flank and abdominal pain but has improved mildly from yesterday. He denies any nausea, vomiting, diarrhea or constipation. Tolerating diet. 12 Point ROS performed and negative other than stated above. Objective - Vital Signs/Intake and Output Vital Signs (last 24 hours): Temp Pulse Resp BP Pulse Ox 97.5 F L 60 20 151/77 H 98 08/14/17 23:26 08/14/17 23:26 08/14/17 23:26 08/14/17 23:26 08/14/17 23:26 Intake and Output: 08/14/17 08/15/17 18:59 06:59 Intake Total 550 Balance 550 - Medications Medications: Current Medications Enoxaparin Sodium (Lovenox) 30 mg SC DAILY [facility] Last Admin: 08/14/17 11:49 Dose: 30 mg Glipizide (Glucotrol) 5 mg PO BIDAC [facility] Last Admin: 08/14/17 17:10 Dose: 5 mg Metronidazole (Flagyl) 500 mg in 100 mls @ 100 mls/hr IVPB Q8 [facility] Last Admin: 08/15/17 05:52 Dose: 100 mls/hr Piperacillin Sod/Tazobactam Sod (Zosyn 3.375 Gm Iv Premix) 3.375 gm in 50 mls @ 200 mls/hr IVPB Q6H [facility] Last Admin: 08/15/17 06:06 Dose: 200 mls/hr Insulin Aspart (Novolog) 0 unit SC ACHS [facility] PRN Reason: Protocol Last Admin: 08/14/17 21:33 Dose: Not Given Ketorolac Tromethamine (Toradol) 30 mg IVP Q6 PRN PRN Reason: Pain, Mild (1-3) Lisinopril (Zestril) 10 mg PO DAILY [facility] Last Admin: 08/14/17 12:44 Dose: Not Given Metformin HCl (Glucophage) 1,000 mg PO BID [facility] Last Admin: 08/14/17 17:10 Dose: 1,000 mg Morphine Sulfate (Morphine) 2 mg IV Q8 PRN PRN Reason: Pain, moderate (4-7) Last Admin: 08/14/17 17:06 Dose: 2 mg Pantoprazole Sodium (Protonix Ec Tab) 40 mg PO DAILY [facility] Last Admin: 08/14/17 11:51 Dose: 40 mg Pneumococcal Polyvalent Vaccine (Pneumovax 23 Vaccine) 0.5 ml IM .ONCE ONE Stop: 08/15/17 10:01 Polyethylene Glycol (Miralax) 17 gm PO DAILY [facility] Last Admin: 08/14/17 11:49 Dose: 17 gm - Labs Labs: 08/14/17 11:01 08/14/17 11:01 PT 11.9 SECONDS (9.7-12.2) 08/13/17 16:02 INR 1.1 08/13/17 16:02 APTT 29 SECONDS (21-34) 08/13/17 16:02 - Constitutional Appears: No Acute Distress - Head Exam Head Exam: ATRAUMATIC, NORMOCEPHALIC - Eye Exam Eye Exam: EOMI Pupil Exam: NORMAL ACCOMODATION - ENT Exam ENT Exam: Mucous Membranes Moist - Respiratory Exam Respiratory Exam: Clear to Ausculation Bilateral. absent: Rales, Wheezes - Cardiovascular Exam Cardiovascular Exam: RRR, +S1, +S2 - GI/Abdominal Exam GI & Abdominal Exam: Soft, Tenderness, Normal Bowel Sounds. absent: Distended, Organomegaly Additional comments: Mild tenderness to RUQ and flank area - Extremities Exam Extremities Exam: absent: Calf Tenderness, Tenderness - Neurological Exam Neurological Exam: Alert, Awake, Oriented x3 - Psychiatric Exam Psychiatric exam: Normal Mood - Skin Skin Exam: Dry, Intact, Warm Assessment and Plan - Assessment and Plan (Free Text) Assessment: 47 M with pmh of HTN and DM presents to the ED with R abdominal and flank pain likely 2/2 mild diverticulitis and/or constipation. 1. Acute mild diverticulitis 2. Constipation 3. DM - HHD as tolerated - Continue Antibiotics with Zosyn and Flagyl - Increased Miralax to BID for constipation - Pain control - Antiemetics PRN - Pt would benefit from outpatient colonoscopy in 6 weeks - Cont to monitor patient clinical course Case and plan was reviewed and discussed in detail with Dr Nice <Isai Nice - Last Filed: 08/15/17 14:22> Objective - Vital Signs/Intake and Output Vital Signs (last 24 hours): Temp Pulse Resp BP Pulse Ox 98.6 F 68 20 138/85 98 08/15/17 08:00 08/15/17 08:00 08/15/17 08:00 08/15/17 08:00 08/15/17 08:00 Intake and Output: 08/15/17 08/15/17 06:59 18:59 Intake Total 550 Balance 550 - Medications Medications: Current Medications Docusate Sodium (Colace) 100 mg PO BID [facility] Last Admin: 08/15/17 10:40 Dose: 100 mg Enoxaparin Sodium (Lovenox) 30 mg SC DAILY [facility] Last Admin: 08/15/17 10:36 Dose: 30 mg [facility] Last Admin: 08/15/17 08:27 Dose: 5 mg Metronidazole (Flagyl) 500 mg in 100 mls @ 100 mls/hr IVPB Q8 [facility] Last Admin: 08/15/17 13:58 Dose: 100 mls/hr Piperacillin Sod/Tazobactam Sod (Zosyn 3.375 Gm Iv Premix) 3.375 gm in 50 mls @ 200 mls/hr IVPB Q6H [facility] Last Admin: 08/15/17 12:56 Dose: 200 mls/hr Insulin Aspart (Novolog) 0 unit SC ACHS [facility] PRN Reason: Protocol Last Admin: 08/15/17 12:37 Dose: 1 unit Ketorolac Tromethamine (Toradol) 30 mg IVP Q6 PRN PRN Reason: Pain, Mild (1-3) Lisinopril (Zestril) 10 mg PO DAILY [facility] Last Admin: 08/15/17 10:35 Dose: 10 mg Metformin HCl (Glucophage) 1,000 mg PO BID [facility] Last Admin: 08/15/17 10:35 Dose: 1,000 mg Morphine Sulfate (Morphine) 2 mg IV Q8 PRN PRN Reason: Pain, moderate (4-7) Last Admin: 08/14/17 17:06 Dose: 2 mg Pantoprazole Sodium (Protonix Ec Tab) 40 mg PO DAILY [facility] Last Admin: 08/15/17 10:35 Dose: 40 mg Polyethylene Glycol (Miralax) 17 gm PO BID [facility] Last Admin: 08/15/17 10:41 Dose: 17 gm - Labs Labs: 08/15/17 07:33 08/15/17 07:33 PT 11.9 SECONDS (9.7-12.2) 08/13/17 16:02 INR 1.1 08/13/17 16:02 APTT 29 SECONDS (21-34) 08/13/17 16:02 Attending/Attestation - Attestation I have personally seen and examined this patient.: Yes I have fully participated in the care of the patient.: Yes I have reviewed all pertinent clinical information, including history, physical exam and plan: Yes Notes (Text): 08/15/17 14:19 I have seen and examined patient with GI fellow and manager medical writing. No acute events overnight, he continues to endorse right lower back pain which at times radiates to flank and lower abdomen. He denies nausea, vomiting, diarrhea, fever/chills. He is tolerating PO diet without difficulty. DM / HTN Abdominal pain - acute diverticulitis Lower back pain, musculoskeletal - Diet as tolerated, encourage increased PO water and fiber intake - Continue with antibiotic therapy to complete 10 day course of medication - Maintain bowel regimen to prevent constipation - Avoid use of narcotic pain medication as this may worsen existing constipation - From GI standpoint ok to discharge patient home with subsequent outpatient follow up. Suggest colonoscopy evaluation within 6-8 weeks, office contact information provided to patient. No further planned interventions, will sign off case. Please reconsult as necessary, thank you.
[2017-08-15 07:49] LABS: BASO % 0.4 % (0.0-2.0); EOS # 0.2 K/uL (0.0-0.7); EOS % 1.6 % (0.0-4.0); HEMOGLOBIN 15.2 g/dL (12.0-18.0); LYMPH # 2.1 K/uL (1.0-4.3); LYMPH % 18.9 % (20.0-40.0); MEAN CELL VOLUME 90.5 fL (80.0-94.0); MEAN CORPUSCULAR HEMOGLOBIN 31.9 pg (27.0-31.0); MEAN CORPUSCULAR HGB CONC 35.2 g/dL (33.0-37.0); MEAN PLATELET VOLUME 9.2 fL (7.2-11.7); MONO # 0.9 K/uL (0.0-0.8); MONO % 8.4 % (0.0-10.0); NEUT # 7.7 K/uL (1.8-7.0); NEUT % 70.7 % (50.0-75.0); NRBC % 0.1 % (0.0-2.0); RBC 4.78 Mil/uL (4.40-5.90); RED CELL DISTRIBUTION WIDTH 13.1 % (11.5-14.5); WHITE BLOOD COUNT 10.9 K/uL (4.8-10.8)
[2017-08-15 08:21] LABS: ALB/GLOB RATIO 1.3 (1.0-2.1); ALBUMIN 3.6 g/dL (3.5-5.0); ALT/SGPT 30 U/L (21-72); AST/SGOT 18 U/L (17-59); BLOOD UREA NITROGEN 11 mg/dL (9-20); CALCIUM 9.1 mg/dl (8.6-10.4); GFR AFRICAN-AMERICAN > 60; GFR NON-AFRICAN AMERICAN > 60
[2017-08-15] MEDS: (Novolog) Insulin Aspart, Recombinant 100 u/ml 10 ml vial SC SCH ×2 (08:24→12:37)
[2017-08-15] MEDS ORDERED: POLYETHYLENE GLYCOL 3350 17 GM/Dose PACKET PO SCH (10:00)
[2017-08-15] MEDS ORDERED: Pneumococcal 23-Valent Vaccine IM ONE (10:00)
[2017-08-15] MEDS ORDERED: Influenza Vaccine 60 mcg/0.5 mL SYR (4YR UP) IM ONE (10:00)
[2017-08-15] MEDS: Pantoprazole 40 mg EC Tab PO SCH (10:35)
[2017-08-15] MEDS: Enoxaparin 30 mg Syringe SC SCH (10:36)
--- NOTE | 2017-08-15 16:33 | CP.PCM.PN ---
Subjective - Date & Time of Evaluation Date of Evaluation: 08/15/17 Time of Evaluation: 16:35 - Subjective Subjective: alert and orientedx3, no acute pain, NAD. Objective - Vital Signs/Intake and Output Vital Signs (last 24 hours): Temp Pulse Resp BP Pulse Ox 98.6 F 68 20 138/85 98 08/15/17 08:00 08/15/17 08:00 08/15/17 08:00 08/15/17 08:00 08/15/17 08:00 Intake and Output: 08/15/17 08/15/17 06:59 18:59 Intake Total 550 Balance 550 - Medications Medications: Current Medications Docusate Sodium (Colace) 100 mg PO BID [facility] Last Admin: 08/15/17 10:40 Dose: 100 mg Enoxaparin Sodium (Lovenox) 30 mg SC DAILY [facility] Last Admin: 08/15/17 10:36 Dose: 30 [facility] Last Admin: 08/15/17 08:27 Dose: 5 mg Metronidazole (Flagyl) 500 mg in 100 mls @ 100 mls/hr IVPB Q8 [facility] Last Admin: 08/15/17 13:58 Dose: 100 mls/hr Piperacillin Sod/Tazobactam Sod (Zosyn 3.375 Gm Iv Premix) 3.375 gm in 50 mls @ 200 mls/hr IVPB Q6H [facility] Last Admin: 08/15/17 12:56 Dose: 200 mls/hr Insulin Aspart (Novolog) 0 unit SC ACHS [facility] PRN Reason: Protocol Last Admin: 08/15/17 12:37 Dose: 1 unit Ketorolac Tromethamine (Toradol) 30 mg IVP Q6 PRN PRN Reason: Pain, Mild (1-3) Lisinopril (Zestril) 10 mg PO DAILY [facility] Last Admin: 08/15/17 10:35 Dose: 10 mg Metformin HCl (Glucophage) 1,000 mg PO BID [facility] Last Admin: 08/15/17 10:35 Dose: 1,000 mg Morphine Sulfate (Morphine) 2 mg IV Q8 PRN PRN Reason: Pain, moderate (4-7) Last Admin: 08/14/17 17:06 Dose: 2 mg Pantoprazole Sodium (Protonix Ec Tab) 40 mg PO DAILY [facility] Last Admin: 08/15/17 10:35 Dose: 40 mg Polyethylene Glycol (Miralax) 17 gm PO BID [facility] Last Admin: 08/15/17 10:41 Dose: 17 gm - Labs Labs: 08/15/17 07:33 08/15/17 07:33 PT 11.9 SECONDS (9.7-12.2) 08/13/17 16:02 INR 1.1 08/13/17 16:02 APTT 29 SECONDS (21-34) 08/13/17 16:02 Assessment and Plan - Assessment and Plan (Free Text) Assessment: Patient is seen and examined. Tolerating diet, still with some right sided flank pain. Cleared by GI for dischargew on po abx to complete [address] Ordoñez, plan to discharge to home today. Advised high fiber diet and to follow up with his PMD in 1 week.
[2017-08-15 16:48] VITALS: BP 146/84; PULSE 70; TEMP 98.1; O2SAT 99
== END 2017-08-15 18:27 | disposition home or self-care (01) | DRG 392 ==
LOC: C.ER 13:21 → C.9E 19:54 → C.3T 20:14
PROVIDERS: ADMIT Internal Medicine Nephrology; ATTEND Internal Medicine Nephrology
PROC: 3E0234Z Introduction of Serum, Toxoid and Vaccine into Muscle, Percutaneous Approach (ICD-10-PCS; principal; 2017-08-15)
DX: K57.92 Diverticulitis of intestine, part unspecified, without perforation or abscess without bleeding (principal); K76.0 Fatty (change of) liver, not elsewhere classified; K59.00 Constipation, unspecified; E11.9 Type 2 diabetes mellitus without complications; D72.829 Elevated white blood cell count, unspecified; I10 Essential (primary) hypertension; Z23 Encounter for immunization